=== PATIENT | female | born 1940 | race Caucasian/White ===

== ENCOUNTER → 2020-06-05 | Outpatient (CLI) | payer OTHER ==
[~2020-06-05] MED LIST: ASA81BEC PO; B12INJ IM; CALCIUM 600 +1 EAC6 PO; CARVEDILOL3.125 MG PO; EVISTA PO; LIPITOR40 MG PO; NORCO 5-325 TA1 EAC2 PO; PRILOSEC20 MG PO; PROLIA60 MG/1 ML SUBQ; STOOL SOFTENER100 MG PO; TOPROL XL25 MG PO; VERAPAMIL E.R240 M1 PO; ZOCOR20 MG PO
== END ==
LOC: M.LAB 09:12
PROVIDERS: ATTEND Surgery
DX: Z01.812 Encounter for preprocedural laboratory examination (principal); Z20.828 Contact with and (suspected) exposure to other viral communicable diseases; K80.20 Calculus of gallbladder without cholecystitis without obstruction

== ENCOUNTER → 2020-06-10 | Day surgery (SDC) | payer OTHER ==
[2020-06-10 10:37] LABS: CALCIUM 9.2 mg/dL (8.5-10.1); CREATININE 0.8 mg/dL (0.6-1.3); POTASSIUM 4.3 mmol/L (3.5-5.1)
[2020-06-10 10:42] LABS: ALBUMIN 3.9 g/dL (3.4-5.0); TOTAL BILIRUBIN 0.5 mg/dL (<0.1-1.0); TOTAL PROTEIN 7.7 g/dL (6.4-8.2)
--- NOTE | 2020-06-10 18:31 | EKG ---
[place] [address] ELECTROCARDIOGRAM REPORT Name: OZ HESTER I Room: [facility]#: [id number] Admission: 06/10/20 Attend Phys: Bg Shirley Discharge: Date of : 42 Date of Service: 06/10/20 0944 Report #: [id number] THIS REPORT FOR: //name// [facility] Test Date: 2020-06-10 Test Time: 09:44:41 Pat Name: OZ HESTER Department: Room: Gender: Bank Note Designer: [facility] : 1940 Requested By: Bg Schaffer Order Number: [id number] Cristiano MD: Rd Springer Measurements Intervals [place] Rate: 68 P: 64 TX: 194 QRS: 20 QRSD: 109 T: 12 QT: 418 QTc: 445 Interpretive Statements Sinus rhythm Compared to ECG 05/16/2007 07:17:29 First degree AV block no longer present Electronically Signed On 06-10-2020 18:31:[address] Springer [email or web address] <ELECTRONICALLY SIGNED> By: Rd Springer MD, FACC 06/10/[address] Springer MD, [facility] /EPI
== END | disposition home or self-care (01) ==
LOC: M.SUR 08:48
PROVIDERS: ATTEND Surgery
DX: K80.20 Calculus of gallbladder without cholecystitis without obstruction (principal); Z53.8 Procedure and treatment not carried out for other reasons; Z79.899 Other long term (current) drug therapy

== ENCOUNTER → 2020-06-11 | Day surgery (SDC) | payer OTHER ==
--- NOTE | ~2020-06-11 | OP ---
[facility] [address] [place] [address] OPERATIVE REPORT Name: OZ HESTER I Room: [facility]#: [id number] Admission: 06/11/20 Attend Phys: Bg Schaffer Discharge: Date of : 42 Report #: [id number] THIS REPORT FOR: //name// cc: Siddharth Irene MD, Anthony MD ~ CC: Siddharth Schaffer DATE OF SERVICE: 06/11/2020 PREOPERATIVE DIAGNOSIS: Symptomatic cholelithiasis. POSTOPERATIVE DIAGNOSIS: Symptomatic cholelithiasis. OPERATION: Laparoscopic cholecystectomy. SURGEON: Bg Schaffer MD ANESTHESIA: General. ESTIMATED BLOOD LOSS: Minimal. SPECIMEN: Gallbladder. DESCRIPTION OF PROCEDURE: After informed consent was obtained, the patient was brought to the operating room and placed supine. SCDs were placed and working, preoperative antibiotics were administered, general anesthesia was induced. The abdomen was prepped and draped in the usual sterile fashion. A 10 mm incision was made below the umbilicus. Fascia was incised and a trocar was placed. Pneumoperitoneum was established. Three right upper quadrant 5 mm ports were placed. Gallbladder was grasped at the fundus and retracted cephalad. Infundibulum was grasped and retracted laterally. I dissected out the cystic duct and cystic artery. The cystic duct and artery were clipped and ligated leaving two clips on the remaining duct and one on the remaining artery. Gallbladder was taken off the liver bed with electrocautery. Prior to any clipping and cutting, the cystic plate was fully identified. The gallbladder was removed through an Endopouch. The fascia was closed with a [id number] 0 Vicryl. Skin was closed with 4-0 Monocryl. Incisions were sealed with Dermabond. COMPLICATIONS: [place] [address] OPERATIVE REPORT Name: OZ HESTER I Room: [facility]#: [id number] Admission: 06/11/20 Attend Phys: Bg Schaffer Discharge: Date of : 42 Report #: [id number] DISPOSITION: The patient was taken to Recovery in satisfactory condition. By: 0907 [id number] Schaffer MD /turner
--- NOTE | 2020-06-13 14:07 | PATH ---
[address] [address] PATHOLOGY RPT PROCEDURE Name: DESTINY OREILLY I Room: [facility]#: [id number] Admission: 06/11/20 Date of : 42 Discharge: Report #: [id number] Path Case #: [id number] [facility] Accession Number: [id number] . 01 Material submitted: . gallbladder - GALLBLADDER AND CONTENTS . 01 Clinical history: . CALCULUS OF GALLBLADDER . 02 Diagnosis: Gallbladder and contents: - Chronic cholecystitis and cholelithiasis. (ISAI:mat; 06/13/2020) S 06/13/2020 1244 Local . 02 Electronically signed: . Ayden Pederson MD, Pathologist NPI- [id number] . 01 Gross description: . The specimen is received in formalin, labeled "Destiny Oreilly, gallbladder and contents". Received is an intact gallbladder measuring 9.5 x 3.6 x 2.9 cm in greatest dimensions displaying a blue-anaya serosal surface. Opening the specimen reveals a velvety, bile-stained mucosa with a gallbladder wall thickness of 0.1 cm. A single black, spiculated calculus is present, and no masses or lesions are noted grossly. Inspector Of Weights And Measures sections, to include the proximal margin, are submitted in cassette A1. (CAA; 06/12/2020) QAC/QAC 06/13/2020 1244 Local . 02 Pathologist provided ICD-10: K80.10 . 02 CPT . 014796 Specimen Comment: A courtesy copy of this report has been sent to [phone], [phone] Specimen Comment: [id number] Specimen Comment: Report sent to / DR ACEVES Performed at: 01 [facility] [address], [place] [id number] MD Lamberto Lino MD Phone: [phone] Performed at: [address] [facility] [address] [place], [place] [id number] MD Ayden Pederson MD Phone: [phone]
== END | disposition home or self-care (01) ==
LOC: M.SUR 06:22
PROVIDERS: ATTEND Surgery
DX: K80.20 Calculus of gallbladder without cholecystitis without obstruction (principal); I10 Essential (primary) hypertension; E78.00 Pure hypercholesterolemia, unspecified; Z79.899 Other long term (current) drug therapy; Z79.82 Long term (current) use of aspirin; Z87.891 Personal history of nicotine dependence; Z98.890 Other specified postprocedural states